=== PATIENT | male | born 1965 | race American Indian/Alaskan Native ===

== ENCOUNTER 2017-10-03 12:59 | Observation (INO) | payer BC, OTHER ==
[2017-10-03] MEDS ORDERED: Sodium Chloride 0.9% 1,000 ML IV ONE (14:36)
--- NOTE | 2017-10-03 14:51 | RAD ---
HISTORY: Diabetic COMPARISON: Chest x-ray performed 10/20/16 TECHNIQUE: Chest, one view. FINDINGS: LUNGS: No focal consolidation. Please note that chest x-ray has limited sensitivity for the detection of pulmonary masses. PLEURA: No significant pleural effusion identified. No definite pneumothorax . CARDIOVASCULAR: The cardiomediastinal silhouette appears within normal limits of size. OSSEOUS STRUCTURES: No acute osseous abnormality identified. VISUALIZED UPPER ABDOMEN: Unremarkable. OTHER FINDINGS: None. IMPRESSION: No focal consolidation, significant pleural effusion, or definite pneumothorax identified.
--- NOTE | 2017-10-03 15:00 | C.PDOC ---
History Of Present Illness 52 y/o male, with history of Type 2 diabetes, sent to the ER by PMD, , for high sugar levels. Patient reports that his mouth feels dry and he is urinating frequently. He states that his blood sugar level was 372 in the morning.that he controls his diabetes through exercise and diet. He reports that he has been exercising as frequently in the past month.He states that he takes Metformin 500 mg 2x a day. He denies nausea, vomiting, and diarrhea. Time Seen by Provider: 10/03/17 14:15 Chief Complaint (Nursing): High Blood Sugar History Per: Patient History/Exam Limitations: no limitations Onset/Duration Of Symptoms: Hrs Current Symptoms Are (Timing): Still Present Severity: Moderate Past Medical History Reviewed: Historical Data, Nursing Documentation, Vital Signs Vital Signs: Last Vital Signs Temp 98.6 F 10/03/17 13:22 Pulse 75 10/03/17 13:22 Resp 18 10/03/17 13:22 BP 119/74 10/03/17 13:22 Pulse Ox 100 10/03/17 15:04 - Medical History PMH: Diabetes, Hyperlipidemia Surgical History: No Surg Hx Family History: States: Other Other Family History: Cancer - Social History Hx Tobacco Use: No Hx Alcohol Use: Yes Hx Substance Use: No - Immunization History Hx Tetanus Toxoid Vaccination: No Hx Influenza Vaccination: No Hx Pneumococcal Vaccination: No Review Of Systems Except As Marked, All Systems Reviewed And Found Negative. Constitutional: Negative for: Fever, Chills ENT: Positive for: Other (dry mouth) Gastrointestinal: Negative for: Nausea, Vomiting, Diarrhea Genitourinary: Positive for: Frequency. Negative for: Dysuria Physical Exam - Physical Exam Appears: Non-toxic, No Acute Distress Skin: Normal Color, Warm Head: Atraumatic, Normacephalic Eye(s): bilateral: Normal Inspection, PERRL Nose: Normal Oral Mucosa: Moist Neck: Supple Chest: Symmetrical Cardiovascular: Rhythm Regular Respiratory: Normal Breath Sounds, No Accessory Muscle Use, No Rales, No Rhonchi , No Wheezing Gastrointestinal/Abdominal: Normal Exam, Soft, No Tenderness Extremity: Normal ROM, No Tenderness, No Swelling Neurological/Psych: Oriented x3, Normal Speech, Normal Cognition, Normal Motor, Normal Sensation ED Course And Treatment - Laboratory Results Result Diagrams: 10/03/17 15:16 10/03/17 15:16 O2 Sat by Pulse Oximetry: 100 (RA) Pulse Ox Interpretation: Normal Medical Decision Making Medical Decision Making: Plan: --CXR --ECG --Labs --Urinalysis Spoke with Dr. Sotomayor, patient with multiple visits to MD for elevated blood sugar. Patient persistently hyperglycemic. Not tolerating diabetic meds well. Request patient be hospitalized , hydrated and stabilized. Disposition Discussed With Dr.: Danny Hurley Counseled Patient/Family Regarding: Studies Performed, Diagnosis - Disposition Disposition: HOME/ ROUTINE Disposition Time: 15:47 Condition: GUARDED Forms: [employer] (Czech) - POA Present On Arrival: None - Clinical Impression Clinical Impression: Hyperglycemia, Diabetic complication - Scribe Statement The provider has reviewed the documentation as recorded by the Scribe Arielle Singh Provider Attestation: All medical record entries made by the Scribe were at my direction and personally dictated by me. I have reviewed the chart and agree that the record accurately reflects my personal performance of the history, physical exam, medical decision making, and the department course for this patient. I have also personally directed, reviewed, and agree with the discharge instructions and disposition. Decision To Admit - Pt Status Changed To: Hospital Disposition Of: Observation - InPatient: Physician Admission Certification: I certify that this patient requires 2 or more midnights of care for the following reason:: peristant hyperglycemia - . Bed Request Type: Regular Patient Diagnosis: Diabetic complication
[2017-10-03 15:23] LABS: EOS # 0.1 K/uL (0.0-0.7); EOS % 1.2 % (0.0-4.0); HEMOGLOBIN 13.3 g/dL (12.0-18.0); LYMPH # 2.2 K/uL (1.0-4.3); LYMPH % 47.1 % (20.0-40.0); MEAN CELL VOLUME 85.5 fL (80.0-94.0); MEAN CORPUSCULAR HEMOGLOBIN 28.5 pg (27.0-31.0); MEAN CORPUSCULAR HGB CONC 33.4 g/dL (33.0-37.0); MEAN PLATELET VOLUME 9.9 fL (7.2-11.7); MONO # 0.3 K/uL (0.0-0.8); MONO % 7.1 % (0.0-10.0); NEUT # 2.1 K/uL (1.8-7.0); NEUT % 43.6 % (50.0-75.0); NRBC % 0.2 % (0.0-2.0); RBC 4.68 Mil/uL (4.40-5.90); RED CELL DISTRIBUTION WIDTH 12.5 % (11.5-14.5); WHITE BLOOD COUNT 4.7 K/uL (4.8-10.8)
[2017-10-03] MEDS ORDERED: Sodium Chloride 0.9% 1,000 ML ONE (15:35)
[2017-10-03 15:37] LABS: ALB/GLOB RATIO 1.1 (1.0-2.1); ALBUMIN 4.3 g/dL (3.5-5.0); ALT/SGPT 77 U/L (21-72); AST/SGOT 31 U/L (17-59); BLOOD UREA NITROGEN 16 mg/dL (9-20); CALCIUM 8.8 mg/dl (8.6-10.4); GFR AFRICAN-AMERICAN > 60; GFR NON-AFRICAN AMERICAN > 60; LIPASE 89 U/L (23-300)
[2017-10-03 15:40] LABS: VENOUS BLOOD GAS BASE EXCESS -8.6 mmol/L (0.0-2.0); VENOUS BLOOD GAS PCO2 33 mmHg (40-60); VENOUS BLOOD GAS PO2 26 mm/Hg (30-55); VENOUS BLOOD PH 7.31 (7.32-7.43)
[2017-10-03 15:44] LABS: URINE BILIRUBIN NEGATIVE (NEGATIVE); URINE BLOOD 1+ (NEGATIVE); URINE CLARITY Clear (Clear); URINE COLOR Yellow (YELLOW); URINE GLUCOSE (UA) 3+ mg/dL (Normal); URINE LEUKOCYTE ESTERASE NEG Leu/uL (Negative); URINE NITRATE NEGATIVE (NEGATIVE); URINE PROTEIN NEGATIVE (NEGATIVE)
[2017-10-03] MEDS ORDERED: (Novolog) Insulin Aspart, Recombinant 100 u/ml 10 ml vial SC SCH (17:45)
--- NOTE | 2017-10-03 17:55 | CP.PCM.HP ---
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 Hurley. The patient states that for the past week he has been experiencing dry mouth and urinary frequency. The patient recently began a regimen of Metformin approximately a week and a half ago due to his inability to control his blood sugar any longer with diet and exercise. The patient reports his blood sugar spiking as high as 466 last week. The patient reports his mother in February 2017 and reports having difficulty maintaining the diet and exercise regimen leading up to her . The patient denies any chest pain, shortness of breath, nausea, vomiting, fevers, chills, syncopal episodes, dizziness, abdominal pain, diarrhea , sore throat, or any other complaints. PMD: Dr. Hurley PMHx: Type 2 Diabetes, Dyslipidemia Medications: Metformin 500mg BID, Lipitor Daily Allergies: Denies Past surgical history: Denies Family history: Mom: Diabetes(), Dad: Diabetes () Social history: Social drinker, Denies tobacco use, Occasional marijuana smoker. Denies any illicit drug use. Present on Admission - Present on Admission Any Indicators Present on Admission: Yes History of Uncontrolled Diabetes: Yes Review of Systems - Constitutional Constitutional: Excessive Sweating, Weight Loss. absent: Chills, Fever, Frequent Falls, Headache, Snoring, Weakness - EENT Eyes: Blurred Vision. absent: Discharge, Dry Eye, Itchy Eyes, Loss of Peripheral Vision, Requires Corrective Lenses, Sees Flashes, Other Visual Disturbances, Loss of Vision Ears: absent: Ear Discharge, Dizziness Nose/Mouth/Throat: absent: Nasal Congestion, Nose Pain, Bleeding Gums, Throat Swelling, Tongue Swelling, Neck Pain - Cardiovascular Cardiovascular: absent: Chest Pain, Irregular Heart Rhythm, Leg Edema, Orthopnea , Palpitations, Paroxysmal Nocturnal Dyspnea, Pedal Edema - Respiratory Respiratory: Cough. absent: Hemoptysis, Pain on Inspiration, Change in Mucous Color - Gastrointestinal Gastrointestinal: absent: Abdominal Pain, Bloating, Diarrhea, Dyspepsia, Loose Stools, Nausea, Vomiting - Genitourinary Genitourinary: Urinary Frequency. absent: Change in Urinary Stream, Difficulty Urinating, Nocturia, Urinary Urgency - Integumentary Integumentary: absent: Bleeding Lesions, New Lesions, Swelling - Neurological Neurological: absent: Abnormal Hearing, Dizziness, Numbness, Tremor, Vertigo, Weakness - Psychiatric Psychiatric: Change in Appetite. absent: Anxiety, Depression, Hopelessness, Panic Attacks, Tactile Hallucinations - Endocrine Endocrine: Polyuria. absent: Deepening of Voice, Polydipsia, Polyphagia Past Patient History - Past Social History Smoking Status: Never Smoked - ENDOCRINE/METABOLIC Hx Diabetes Mellitus Type 2: Yes - PSYCHIATRIC Hx Substance Use: No - SURGICAL HISTORY Other/Comment: tumor removal under left arm - ANESTHESIA Hx Anesthesia: Yes Hx Anesthesia Reactions: No Hx Malignant Hyperthermia: No Meds Allergies/Adverse Reactions: Allergies Allergy/AdvReac Type Severity Reaction Status Date / Time No Known Allergies Allergy Verified 02/28/15 11:34 Physical Exam - Head Exam Head Exam: ATRAUMATIC, NORMAL INSPECTION, NORMOCEPHALIC - Eye Exam Eye Exam: EOMI, Normal appearance, PERRL. absent: Periorbital tenderness Pupil Exam: NORMAL ACCOMODATION, PERRL. absent: Irregular, Unequal - ENT Exam ENT Exam: Mucous Membranes Moist, Normal Exam, Normal Oropharynx - Neck Exam Neck exam: Positive for: Normal Inspection. Negative for: Lymphadenopathy, Thyromegaly - Respiratory Exam Respiratory Exam: Clear to Auscultation Bilateral, NORMAL BREATHING PATTERN. absent: Prolonged Expiratory Phase, Wheezes, Respiratory Distress - Cardiovascular Exam Cardiovascular Exam: REGULAR RHYTHM, RRR, +S1, +S2. absent: Gallop, Rubs - GI/Abdominal Exam GI & Abdominal Exam: Normal Bowel Sounds, Soft. absent: Hypoactive Bowel Sounds , Organomegaly, Tenderness - Extremities Exam Extremities exam: Positive for: normal inspection. Negative for: full ROM, joint swelling, pedal edema, tenderness - Back Exam Back exam: NORMAL INSPECTION. absent: CVA tenderness (L), CVA tenderness (R), paraspinal tenderness - Neurological Exam Neurological exam: Alert, CN II-XII Intact, Normal Gait, Oriented x3 - Psychiatric Exam Psychiatric exam: Normal Affect, Normal Mood - Skin Skin Exam: Dry, Intact, Warm Results - Vital Signs Recent Vital Signs: Last Vital Signs Temp 98.6 F 01/16/18 13:22 Pulse 75 10/03/17 13:22 Resp 18 10/03/17 13:22 BP 119/74 10/03/17 13:22 Pulse Ox 100 10/03/17 15:50 - Labs Result Diagrams: 10/03/17 15:16 10/03/17 15:16 Labs: Laboratory Results - last 24 hr 10/03/17 10/03/17 10/03/17 15:16 15:16 15:26 WBC 4.7 L RBC 4.68 Hgb 13.3 Hct 40.0 MCV 85.5 MCH 28.5 MCHC 33.4 RDW 12.5 Plt Count 220 MPV 9.9 Neut % (Auto) 43.6 L Lymph % (Auto) 47.1 H [place] % (Auto) 7.1 Eos % (Auto) 1.2 Baso % (Auto) 1.0 Neut # 2.1 Lymph # 2.2 [place] # 0.3 Eos # 0.1 Baso # 0.0 Puncture Site pO2 Haile Test VBG pH VBG pCO2 VBG HCO3 VBG O2 Sat (Calc) VBG Base Excess Sodium 132 Potassium 4.1 Chloride 99 Carbon Dioxide 25 Anion Gap 12 BUN 16 Creatinine 1.0 Est GFR ( Amer) > 60 Est GFR (Non-Af Amer) > 60 Random Glucose 333 H Calcium 8.8 Total Bilirubin 0.8 AST 31 ALT 77 H Alkaline Phosphatase 82 Total Protein 8.2 Albumin 4.3 Globulin 3.9 Albumin/Globulin Ratio 1.1 Lipase 89 Urine Color Yellow Urine Clarity Clear Urine pH 6.0 Ur Specific [place] 1.037 H Urine Protein Negative Urine Glucose (UA) 3+ H Urine Ketones Trace Urine Blood 1+ H Urine Nitrate Negative Urine Bilirubin Negative Urine Urobilinogen 2.0 Ur Leukocyte Esterase Neg Urine WBC (Auto) 1 Urine RBC (Auto) 5 H Serum Ketones Negative 10/03/17 15:35 WBC RBC Hgb Hct MCV MCH MCHC RDW Plt Count MPV Neut % (Auto) Lymph % (Auto) [place] % (Auto) Eos % (Auto) Baso % (Auto) Neut # Lymph # [place] # Eos # Baso # Puncture Site Venous pO2 26 L Haile Test Na VBG pH 7.31 L VBG pCO2 33 L VBG HCO3 16.7 VBG O2 Sat (Calc) 53.6 VBG Base Excess -8.6 L Sodium Potassium Chloride Carbon Dioxide Anion Gap BUN Creatinine Est GFR ( Amer) Est GFR (Non-Af Amer) Random Glucose Calcium Total Bilirubin AST ALT Alkaline Phosphatase Total Protein Albumin Globulin Albumin/Globulin Ratio Lipase Urine Color Urine Clarity Urine pH Ur Specific [place] Urine Protein Urine Glucose (UA) Urine Ketones Urine Blood Urine Nitrate Urine Bilirubin Urine Urobilinogen Ur Leukocyte Esterase Urine WBC (Auto) Urine RBC (Auto) Serum Ketones Assessment & Plan - Assessment and Plan (Free Text) Assessment: 52 year old male with past medical history of dyslipidemia and Type 2 diabetes being admitted for uncontrolled diabetes. Plan: Uncontrolled Diabetes -Hemoglobin A1C in the A.M. -Lipid panel in the A.M. -Will hold Metformin at this time. -Start Novolog sliding scale (low) -Accuchecks QACHS -Carbohydrate consistent diet -NS @100cc/hr - Dietitian referral -Endocrinology consult( Dr.Jenny Hassan) -Patient was previously controlled for five years with diet and exercise; Started Metformin 1.5 weeks ago. -CT abdomen/pelvis with PO/IV contrast: new onset uncontrolled diabetic. Will f/ u with results. Dyslipidemia -Lipid panel. Will f/u with results. -Restart home medications (Lipitor--> Crestor) Cough -CXR done in the E.D. was negative for active disease -Blood culture. Will f/u with results. -Urine culture. Will f/u with results. -Legionella urine antigen, Mycoplasma pneumoniae IgM, Strep pneumoniae urine Ag , and Influenza. Will f/u with results. Leukopenia -HIV 1/2 Screen -Mild. WBC 4.7. Prophylaxis -Pepcid 20 mg POD BID -Ambulatory. SCD's Bilaterally at night. <Mine Barrera V - Last Filed: 10/04/17 07:38> Results - Vital Signs Recent Vital Signs: Last Vital Signs Temp 98 F 10/03/17 23:50 Pulse 78 10/03/17 23:50 Resp 19 10/03/17 23:50 BP 108/64 10/03/17 23:50 Pulse Ox 99 10/04/17 03:30 - Labs Result Diagrams: 10/03/17 15:16 10/03/17 15:16 Labs: Laboratory Results - last 24 hr 10/03/17 10/03/17 10/03/17 15:16 15:16 15:26 WBC 4.7 L RBC 4.68 Hgb 13.3 Hct 40.0 MCV 85.5 MCH 28.5 MCHC 33.4 RDW 12.5 Plt Count 220 MPV 9.9 Neut % (Auto) 43.6 L Lymph % (Auto) 47.1 H [place] % (Auto) 7.1 Eos % (Auto) 1.2 Baso % (Auto) 1.0 Neut # 2.1 Lymph # 2.2 [place] # 0.3 Eos # 0.1 Baso # 0.0 Puncture Site pO2 Haile Test VBG pH VBG pCO2 VBG HCO3 VBG O2 Sat (Calc) VBG Base Excess Sodium 132 Potassium 4.1 Chloride 99 Carbon Dioxide 25 Anion Gap 12 BUN 16 Creatinine 1.0 Est GFR ( Amer) > 60 Est GFR (Non-Af Amer) > 60 POC Glucose (mg/dL) Random Glucose 333 H Hemoglobin A1c Calcium 8.8 Total Bilirubin 0.8 AST 31 ALT 77 H Alkaline Phosphatase 82 Total Protein 8.2 Albumin 4.3 Globulin 3.9 Albumin/Globulin Ratio 1.1 Triglycerides Cholesterol LDL Cholesterol Direct HDL Cholesterol Lipase 89 Urine Color Yellow Urine Clarity Clear Urine pH 6.0 Ur Specific [place] 1.037 H Urine Protein Negative Urine Glucose (UA) 3+ H Urine Ketones Trace Urine Blood 1+ H Urine Nitrate Negative Urine Bilirubin Negative Urine Urobilinogen 2.0 Ur Leukocyte Esterase Neg Urine WBC (Auto) 1 Urine RBC (Auto) 5 H Serum Ketones Negative HIV 1&2 Antibody Screen Ur L.pneumophila Ag Mycoplasma pneumon IgM 10/03/17 10/03/17 10/03/17 15:35 17:58 18:53 WBC RBC Hgb Hct MCV MCH MCHC RDW Plt Count MPV Neut % (Auto) Lymph % (Auto) [place] % (Auto) Eos % (Auto) Baso % (Auto) Neut # Lymph # [place] # Eos # Baso # Puncture Site Venous pO2 26 L Haile Test Na VBG pH 7.31 L VBG pCO2 33 L VBG HCO3 16.7 VBG O2 Sat (Calc) 53.6 VBG Base Excess -8.6 L Sodium Potassium Chloride Carbon Dioxide Anion Gap BUN Creatinine Est GFR ( Amer) Est GFR (Non-Af Amer) POC Glucose (mg/dL) 216 H Random Glucose Hemoglobin A1c Calcium Total Bilirubin AST ALT Alkaline Phosphatase Total Protein Albumin Globulin Albumin/Globulin Ratio Triglycerides Cholesterol LDL Cholesterol Direct HDL Cholesterol Lipase Urine Color Urine Clarity Urine pH Ur Specific [place] Urine Protein Urine Glucose (UA) Urine Ketones Urine Blood Urine Nitrate Urine Bilirubin Urine Urobilinogen Ur Leukocyte Esterase Urine WBC (Auto) Urine RBC (Auto) Serum Ketones HIV 1&2 Antibody Screen Negative Ur L.pneumophila Ag Mycoplasma pneumon IgM 10/03/17 10/03/17 10/03/17 19:03 19:03 21:48 WBC RBC Hgb Hct MCV MCH MCHC RDW Plt Count MPV Neut % (Auto) Lymph % (Auto) [place] % (Auto) Eos % (Auto) Baso % (Auto) Neut # Lymph # [place] # Eos # Baso # Puncture Site pO2 Haile Test VBG pH VBG pCO2 VBG HCO3 VBG O2 Sat (Calc) VBG Base Excess Sodium Potassium Chloride Carbon Dioxide Anion Gap BUN Creatinine Est GFR ( Amer) Est GFR (Non-Af Amer) POC Glucose (mg/dL) 254 H Random Glucose Hemoglobin A1c 12.5 H Calcium Total Bilirubin AST ALT Alkaline Phosphatase Total Protein Albumin Globulin Albumin/Globulin Ratio Triglycerides 121 Cholesterol 165 LDL Cholesterol Direct 102 HDL Cholesterol 39 Lipase Urine Color Urine Clarity Urine pH Ur Specific [place] Urine Protein Urine Glucose (UA) Urine Ketones Urine Blood Urine Nitrate Urine Bilirubin Urine Urobilinogen Ur Leukocyte Esterase Urine WBC (Auto) Urine RBC (Auto) Serum Ketones HIV 1&2 Antibody Screen Ur L.pneumophila Ag Mycoplasma pneumon IgM 10/03/17 10/03/17 10/04/17 Unknown Unknown 07:07 WBC RBC Hgb Hct MCV MCH MCHC RDW Plt Count MPV Neut % (Auto) Lymph % (Auto) [place] % (Auto) Eos % (Auto) Baso % (Auto) Neut # Lymph # [place] # Eos # Baso # Puncture Site pO2 Haile Test VBG pH VBG pCO2 VBG HCO3 VBG O2 Sat (Calc) VBG Base Excess Sodium Potassium Chloride Carbon Dioxide Anion Gap BUN Creatinine Est GFR ( Amer) Est GFR (Non-Af Amer) POC Glucose (mg/dL) 341 H Random Glucose Hemoglobin A1c Calcium Total Bilirubin AST ALT Alkaline Phosphatase Total Protein Albumin Globulin Albumin/Globulin Ratio Triglycerides Cholesterol LDL Cholesterol Direct HDL Cholesterol Lipase Urine Color Urine Clarity Urine pH Ur Specific [place] Urine Protein Urine Glucose (UA) Urine Ketones Urine Blood Urine Nitrate Urine Bilirubin Urine Urobilinogen Ur Leukocyte Esterase Urine WBC (Auto) Urine RBC (Auto) Serum Ketones HIV 1&2 Antibody Screen Ur L.pneumophila Ag Negative Mycoplasma pneumon IgM Negative Attending/Attestation - Attestation I have personally seen and examined this patient.: Yes I have fully participated in the care of the patient.: Yes I have reviewed all pertinent clinical information: Yes Notes (Text): This is a late computer entry for 10/03/2017. Patient seen, examined, and case discussed with emergency medical technician/driver. Patient seen in [facility] emergency room bed 14 on 10/03/2017. Patient reports history of controlled diabetes not requiring any by mouth anti- hyperglycemics for many years with a family history of diabetes prominently his mother who also from sequela of breast cancer. Patient reports he was recently started by his PMD metformin about a week and a half ago however his sugars remain above 250 to upwards 300s. Patient reports he has been more health conscious and has only been really eating salads these past 2 weeks including grilled chicken and he is stretching his fruit and he has not been to the gym in the new year. Patient reports unintentional weight loss of about 9 pounds in these past 2 weeks. Patient is also on a statin for his history of cholesterol problems. Upon review of labs, patient does not have an elevated anion gap and nor does he have ketones to be suggestive of DKA. Patient does have sugars above 300. Patient has not recently been on any steroids and reports he is getting over cold. Discussed admitting orders with emergency medical technician/driver. Assessment plan 1.Uncontrolled Diabetes -Hemoglobin A1C in the A.M. Patient's A1c drawn early in the emergency room which shows an A1c of 12.5 we will need to follow-up with patient's primary care doctor to see how bennett over change his what sounds like controlled diabetes to currently. -Lipid panel in the A.M. -Will hold Metformin at this time. -Start Novolog sliding scale (low) -Accuchecks QACHS -Start Lantus 5 units at night -Carbohydrate consistent diet -NS @100cc/hr - Dietitian referral -Endocrinology consult( Dr.Jenny Hassan)-Dr. Hassan is not available -Patient was previously controlled for five years with diet and exercise; Started Metformin 1.5 weeks ago. -CT abdomen/pelvis with PO/IV contrast: new onset uncontrolled diabetic. Will f/ u with results. 2. Dyslipidemia -Lipid panel. Will f/u with results. -Restart home medications (Lipitor--> Crestor) 3. Cough -CXR done in the E.D. was negative for active disease -Blood culture. Will f/u with results. -Urine culture. Will f/u with results. -Legionella urine antigen, Mycoplasma pneumoniae IgM, Strep pneumoniae urine Ag , and Influenza. Will f/u with results. 4. Leukopenia -HIV 1/2 Screen -Mild. WBC 4.7. neutrophil # 2.1 5. Prophylaxis -Pepcid 20 mg POD BID -Ambulatory. SCD's Bilaterally at night. Patient does not want influenza vaccination I have explained to him the preventative nature of influenza vaccination, which he refuses it.
[2017-10-03] MEDS ORDERED: Iohexol 300 100 ML IJ ONE (18:01)
[2017-10-03] MEDS: Sodium Chloride 0.9% 1,000 ML IV SCH (18:30)
[2017-10-03] MEDS ORDERED: Iohexol 240 (50 ml) ONE (18:43)
[2017-10-03] MEDS: (Novolog) Insulin Aspart, Recombinant 100 u/ml 10 ml vial SC SCH ×2 (18:48→21:57)
[2017-10-03 19:13] LABS: HDL CHOLESTEROL 39 mg/dL (30-70)
[2017-10-03 19:23] LABS: LDL CHOLESTEROL 102 mg/dL (0-129)
--- NOTE | 2017-10-03 20:30 | CT ---
EXAM: CT Abdomen and Pelvis With Intravenous Contrast EXAM DATE/TIME: Exam ordered 10/03/2017 5:39 PM CLINICAL HISTORY: 52 years old, male; Pain; Abdominal pain; Other: Weight loss; Additional info: New onset uncontrolled diabetes TECHNIQUE: Axial computed tomography images of the abdomen and pelvis with intravenous contrast. All CT scans at this facility use one or more dose reduction techniques, viz.: automated exposure control; ma/kV adjustment per patient size (including targeted exams where dose is matched to indication; i.e. head); or iterative reconstruction technique. Coronal and sagittal reformatted images were created and reviewed. CONTRAST: 100 mL of omniupaque 300 administered intravenously. COMPARISON: No relevant prior studies available. FINDINGS: Lower thorax: No acute findings. ABDOMEN: Liver: Unremarkable. No mass. Gallbladder and bile ducts: Unremarkable. No calcified stones. No ductal dilation. Pancreas: Unremarkable. No mass. No ductal dilation. Spleen: Unremarkable. No splenomegaly. Adrenals: Unremarkable. No mass. Kidneys and ureters: There are 6 low density lesions noted in the right kidney. 2 are less than 5 mm and are characterized fully. The other 3 are simple cysts. 3 low density lesions are seen in the left kidney. One is less than 5 mm and not characterized fully. The other 2 are simple cysts. Stomach and bowel: Unremarkable. No obstruction. No mucosal thickening. Appendix: No findings to suggest acute appendicitis. PELVIS: Bladder: Unremarkable. No mass. Reproductive: No prostate measures 2.8 x 4.6 x3 cm ABDOMEN and PELVIS: Intraperitoneal space: Unremarkable. No free air. No significant fluid collection. Bones/joints: No acute fracture. No dislocation. Soft tissues: Unremarkable. Vasculature: Unremarkable. No abdominal aortic aneurysm. Lymph nodes: Unremarkable. No enlarged lymph nodes. IMPRESSION: 1. No acute findings. No abnormalities related to the pancreas. 2. Bilateral renal cysts. Both kidneys have low density lesions less than 5 mm that are too small to characterize fully
[2017-10-03] MEDS ORDERED: (Lantus) Insulin Glargine, Recombinant SC SCH (22:45)
[2017-10-04 08:19] LABS: BASO % 0.8 % (0.0-2.0); EOS # 0.1 K/uL (0.0-0.7); EOS % 1.7 % (0.0-4.0); LYMPH # 2.2 K/uL (1.0-4.3); LYMPH % 48.3 % (20.0-40.0); MEAN CELL VOLUME 85.4 fL (80.0-94.0); MEAN PLATELET VOLUME 9.8 fL (7.2-11.7); MONO # 0.4 K/uL (0.0-0.8); MONO % 8.4 % (0.0-10.0); NEUT # 1.9 K/uL (1.8-7.0); NEUT % 40.8 % (50.0-75.0); NRBC % 0.1 % (0.0-2.0); RBC 4.12 Mil/uL (4.40-5.90); RED CELL DISTRIBUTION WIDTH 12.6 % (11.5-14.5); WHITE BLOOD COUNT 4.5 K/uL (4.8-10.8)
[2017-10-04 08:31] LABS: ALB/GLOB RATIO 1.2 (1.0-2.1); ALBUMIN 3.6 g/dL (3.5-5.0); ALT/SGPT 64 U/L (21-72); AST/SGOT 19 U/L (17-59); BLOOD UREA NITROGEN 14 mg/dL (9-20); CALCIUM 8.2 mg/dl (8.6-10.4); GFR AFRICAN-AMERICAN > 60; GFR NON-AFRICAN AMERICAN > 60; HDL CHOLESTEROL 27 mg/dL (30-70); MAGNESIUM 1.6 mg/dL (1.6-2.3)
[2017-10-04] MEDS: (Novolog) Insulin Aspart, Recombinant 100 u/ml 10 ml vial SC SCH ×6 (08:41→17:10)
[2017-10-04 08:45] LABS: LDL CHOLESTEROL 90 mg/dL (0-129)
[2017-10-04] MEDS ORDERED: Influenza Vaccine 60 mcg/0.5 mL SYR (4YR UP) IM ONE (10:00)
[2017-10-04] MEDS ORDERED: Pneumococcal 23-Valent Vaccine IM ONE (10:00)
[2017-10-04] MEDS: Sodium Chloride 0.9% 1,000 ML IV SCH ×2 (14:37→14:38)
--- NOTE | 2017-10-04 18:33 | CP.PCM.PN ---
Subjective - Date & Time of Evaluation Date of Evaluation: 10/04/17 Time of Evaluation: 14:35 - Subjective Subjective: Medical Attending Note Patient seen and examined. Patient denies headache, denies chest pain, denies palpitations. denies shortness of breathe, denies nausea, denies vomitting, denies muscle aches and pain, denies abdominal pain, denies dysuria, denies frequency. I spoke with him at length he will need insulin given his [id number] is over 9.5; it is 12.5 and he will need insulin to help control his sugars. His uncontrolled sugars are leading him to feel down, muscle aches, and going to the bathroom more frequently. I spoke with his PMD, Dr Hurley, his a1c in the office was 13 and over the past couple of years he has been recommend for oral hypoglycemics but had refused when his a1c was in the 8s. Objective - Vital Signs/Intake and Output Vital Signs (last 24 hours): Temp Pulse Resp BP Pulse Ox 98.5 F 75 20 113/68 98 10/04/17 16:00 10/04/17 16:00 10/04/17 16:00 10/04/17 16:00 10/04/17 16:00 - Medications Medications: Current Medications Famotidine (Pepcid) 20 mg PO BID [facility] Last Admin: 10/04/17 18:18 Dose: Not Given Heparin Sodium (Porcine) (Heparin) 5,000 units SC Q12 [facility] Last Admin: 10/04/17 10:04 Dose: Not Given Sodium Chloride (Sodium Chloride 0.9%) 1,000 mls @ 100 mls/hr IV .Q10H [facility] Last Admin: 10/04/17 14:38 Dose: Not Given Insulin Aspart (Novolog) 8 unit SC AC [facility] Last Admin: 10/04/17 17:08 Dose: 8 unit Insulin Aspart (Novolog) 0 unit SC ACHS [facility] PRN Reason: Protocol Last Admin: 10/04/17 17:10 Dose: Not Given Insulin Glargine (Lantus) 20 unit SC HS [facility] Rosuvastatin Calcium (Crestor) 10 mg PO HS [facility] - Labs Labs: 10/04/17 08:03 10/04/17 08:03 - Constitutional Appears: Non-toxic, No Acute Distress - Head Exam Head Exam: NORMAL INSPECTION - Eye Exam Eye Exam: EOMI - ENT Exam ENT Exam: Mucous Membranes Moist - Respiratory Exam Respiratory Exam: Clear to Ausculation Bilateral, NORMAL BREATHING PATTERN. absent: Rales, Rhonchi, Wheezes - Cardiovascular Exam Cardiovascular Exam: REGULAR RHYTHM, +S1, +S2 - GI/Abdominal Exam GI & Abdominal Exam: Soft, Normal Bowel Sounds. absent: Distended, Firm, Guarding, Rigid, Tenderness, Mass, Rebound - Extremities Exam Extremities Exam: absent: Pedal Edema, Tenderness - Back Exam Back Exam: absent: CVA tenderness (L), CVA tenderness (R) - Neurological Exam Neurological Exam: Alert, Awake, Oriented x3 Neuro motor strength exam: Left Upper Extremity: 5, Right Upper Extremity: 5, Left Lower Extremity: 5, Right Lower Extremity: 5 - Psychiatric Exam Psychiatric exam: Normal Affect, Normal Mood - Skin Skin Exam: Dry, Normal Color, Warm Assessment and Plan (1) Uncontrolled diabetes mellitus Assessment & Plan: Endocrinology: Dr. Hassan on consult [id number]: 12.5 AccuchecksQAC and HS Start Lantus 20 units subqHS Novolog 8 units subac Novolog sc ACHS Crestor 10mg POqHS (lipital not available in house) Status: Chronic (2) Hyperlipidemia Assessment & Plan: Crestor 10mg POqHS T, Chol: 165, LDL: 102, HDL:39 Status: Chronic (3) Prophylactic measure Assessment & Plan: Patient is ordered for heparin dvt ppx and pepcid gi ppx refuses it. Patient was recommended for influenza and pneumonia vaccinations but has also refused it [facility] referral-->pending Will discontinue IV fluids. Status: Acute
[2017-10-04] MEDS ORDERED: Bisacodyl 5mg EC Tab PO ONE (19:44)
[2017-10-04] MEDS ORDERED: (Lantus) Insulin Glargine, Recombinant SC SCH (22:00)
--- NOTE | 2017-10-05 04:24 | CON ---
DATE: ENDOCRINOLOGY CONSULTATION LOCATION: Room 369. HISTORY OF PRESENT ILLNESS: This is a 52-year-old male with known history of type 2 diabetes, recently started on metformin of 500 mg b.i.d. and presenting here with persistent hyperglycemic accelerations despite the aforementioned and is now being referred for diabetic evaluation and management. PAST MEDICAL HISTORY: As mentioned above, history of type 2 diabetes, recently started on metformin of 500 mg b.i.d., and also has dyslipidemia, on Lipitor 20 mg daily. FAMILY HISTORY: Strongly positive for diabetes with both parents having had type 2 diabetes and hypertension. 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 REVIEW OF SYSTEMS: As mentioned above, admits to episodic bouts of dizziness and lightheadedness, worse on the day of admission with easy fatigability and tiredness, bifrontal headaches and visual blurring, again worse in the last two weeks or so prior to admission. No chest pains, palpitations or PNDs. His oral intake has been variable with occasional dyspepsia and admits to marked polyuria, nocturia, and polydipsia with about a 5-pound or so weight loss. PHYSICAL EXAMINATION: GENERAL: This is an average-built male, in no apparent distress. VITAL SIGNS: Blood pressure 140/80, pulse of 70 beats per minute, regular, temperature 98, respirations 20, height is 6 feet 2 inches, and weight is 192 pounds. HEENT: Head normocephalic. Eyes are anicteric with pink conjunctivae. Funduscopy not possible at this time. Ears, nose and throat otherwise normal. NECK: Supple. Thyroid gland is normal in size. No carotid bruits or cervical adenopathy. CARDIOPULMONARY: Adynamic precordium. S1 and S2 is rapid and regular. LUNGS: Clear to auscultation. ABDOMEN: Flat and soft with positive bowel sounds. EXTREMITIES: No peripheral edema. Pulses are +2 bilaterally. LABORATORY DATA: His chemistry shows a BUN of 14, sodium 132, potassium 3.9, chloride 102, CO2 of 24, glucose 355, and creatinine 0.9. His glucose levels have ranged from 320-341 mg/dL. His hemoglobin A1c was reported as 12.5%. ASSESSMENT: This is a 52-year-old male with uncontrolled and decompensated type-2 insulin-requiring diabetes, presented here with persistent hyperglycemic accelerations despite outpatient oral hypoglycemic drug therapy and associated spurious hyponatremia and dehydration as noted with prerenal azotemia. PLAN OF MANAGEMENT: Because of the persistent glucose toxicity and hyperglycemic accelerations, the patient would clearly benefit from the initiation of a more physiologic basal and bolus insulin drug combination as ordered. We will start him right away on the basal and bolus insulin combination with Lantus, given as 20 units subcu at bedtime daily to start tonight. We will also add NovoLog for the mealtime insulin requirement at a dose of 8 units t.i.d. before meals to start today. We will modify the coverage scale to obviate hypoglycemia and detailed orders have been given. We will titrate incrementally as indicated to optimize metabolic control. We will initiate diabetic education to include insulin self-administration at this time. Since he is newly diagnosed, would expect improved glycemic profile with the initiation of insulin therapy, and many at times in these patients recover metabolically with subtherapeutic hypoglycemia, and would be able to therefore switch him over to a basal insulin in combination with dual or triple oral hypoglycemic drug therapy during the day, preferably on the outpatient. This will also improve his clinical and metabolic symptoms as mentioned. We will initiate also nutritional counseling with healthier food choices as noted. We will also order a serum C-peptide to ascertain his endogenous pancreatic reserve at this time. We will follow and advice accordingly. We will also continue the vigorous IV hydration to replenish the lost fluids and electrolytes from the increased osmotic diuresis thereof. Teresa Hassan MD
[2017-10-05 07:46] LABS: BASO % 0.8 % (0.0-2.0); EOS # 0.1 K/uL (0.0-0.7); EOS % 2.1 % (0.0-4.0); LYMPH # 2.4 K/uL (1.0-4.3); LYMPH % 49.8 % (20.0-40.0); MEAN CELL VOLUME 84.9 fL (80.0-94.0); MEAN CORPUSCULAR HEMOGLOBIN 29.3 pg (27.0-31.0); MEAN CORPUSCULAR HGB CONC 34.6 g/dL (33.0-37.0); MEAN PLATELET VOLUME 9.6 fL (7.2-11.7); MONO # 0.4 K/uL (0.0-0.8); MONO % 8.9 % (0.0-10.0); NEUT # 1.9 K/uL (1.8-7.0); NEUT % 38.4 % (50.0-75.0); NRBC % 0.1 % (0.0-2.0); RBC 4.09 Mil/uL (4.40-5.90); RED CELL DISTRIBUTION WIDTH 12.7 % (11.5-14.5); WHITE BLOOD COUNT 4.8 K/uL (4.8-10.8)
[2017-10-05 08:10] VITALS: PULSE 68; RESP 20
[2017-10-05] MEDS: (Novolog) Insulin Aspart, Recombinant 100 u/ml 10 ml vial SC SCH ×6 (08:15→16:35)
[2017-10-05 08:29] LABS: ALB/GLOB RATIO 1.2 (1.0-2.1); ALBUMIN 3.6 g/dL (3.5-5.0); ALT/SGPT 64 U/L (21-72); AST/SGOT 24 U/L (17-59); BLOOD UREA NITROGEN 12 mg/dL (9-20); CALCIUM 8.4 mg/dl (8.6-10.4); GFR AFRICAN-AMERICAN > 60; GFR NON-AFRICAN AMERICAN > 60
[2017-10-05] MEDS ORDERED: Dextrose 50% SYRINGE Inj (50 ml) IV PRN (10:12)
[2017-10-05] MEDS ORDERED: Glucagon Recombinant 1 mg Inj IM PRN (10:12)
[2017-10-05] MEDS ORDERED: Sodium Chloride 0.9% 1,000 ML IV SCH (10:30)
--- NOTE | 2017-10-05 10:40 | CARD ---
APPROVED REPORT EKG Measurement Heart [id number] ND [id number] <Conclusion> Normal sinus rhythm Early repolarization Normal ECG
[2017-10-05 13:20] LABS: C-PEPTIDE 1.04 ng/mL (0.80-3.85)
[2017-10-05 17:02] VITALS: BP 112/72; TEMP 98.6; O2SAT 99
--- NOTE | 2017-10-05 17:07 | CP.PCM.DIS ---
<Ayden Robles - Last Filed: 10/05/17 18:09> Provider - Provider Date of Admission: 10/03/17 15:50 Attending physician: Mine Barrera DO Primary care physician: PMD: Dr. Hurley Consults: Endocrinology (Dr. Hassan) Time Spent in preparation of Discharge (in minutes): 45 Hospital Course - Lab Results Lab Results: Micro Results 10/03/17 18:45 Blood Blood Culture - Preliminary NO GROWTH AFTER 24 HOURS 10/03/17 18:15 Blood Blood Culture - Preliminary NO GROWTH AFTER 24 HOURS 10/03/17 19:32 Urine Urine Culture - Final No Growth (<1,000 CFU/ML) Most Recent Lab Values WBC 4.8 K/uL (4.8-10.8) 10/05/17 07:35 RBC 4.09 Mil/uL (4.40-5.90) L 10/05/17 07:35 Hgb 12.0 g/dL (12.0-18.0) 10/05/17 07:35 Hct 34.7 % (35.0-51.0) L 10/05/17 07:35 MCV 84.9 fL (80.0-94.0) 10/05/17 07:35 MCH 29.3 pg (27.0-31.0) 10/05/17 07:35 MCHC 34.6 g/dL (33.0-37.0) 10/05/17 07:35 RDW 12.7 % (11.5-14.5) 10/05/17 07:35 Plt Count 212 K/uL (130-400) 10/05/17 07:35 MPV 9.6 fL (7.2-11.7) 10/05/17 07:35 Neut % (Auto) 38.4 % (50.0-75.0) L 10/05/17 07:35 Lymph % (Auto) 49.8 % (20.0-40.0) H 10/05/17 07:35 Fallon % (Auto) 8.9 % (0.0-10.0) 10/05/17 07:35 Eos % (Auto) 2.1 % (0.0-4.0) 10/05/17 07:35 Baso % (Auto) 0.8 % (0.0-2.0) 10/05/17 07:35 Neut # 1.9 K/uL (1.8-7.0) 10/05/17 07:35 Lymph # 2.4 K/uL (1.0-4.3) 10/05/17 07:35 Fallon # 0.4 K/uL (0.0-0.8) 10/05/17 07:35 Eos # 0.1 K/uL (0.0-0.7) 10/05/17 07:35 Baso # 0.0 K/uL (0.0-0.2) 10/05/17 07:35 ESR 9 mm/hr (0-15) 10/04/17 08:03 Puncture Site Venous 10/03/17 15:35 pO2 26 mm/Hg (30-55) L 10/03/17 15:35 Haile Test Na 10/03/17 15:35 VBG pH 7.31 (7.32-7.43) L 10/03/17 15:35 VBG pCO2 33 mmHg (40-60) L 10/03/17 15:35 VBG HCO3 16.7 mmol/L 10/03/17 15:35 VBG O2 Sat (Calc) 53.6 % (40-65) 10/03/17 15:35 VBG Base Excess -8.6 mmol/L (0.0-2.0) L 10/03/17 15:35 Sodium 131 mmol/L (132-148) L 10/05/17 07:35 Potassium 3.7 mmol/L (3.6-5.2) 10/05/17 07:35 Chloride 102 mmol/L (98-107) 10/05/17 07:35 Carbon Dioxide 23 mmol/L (22-30) 10/05/17 07:35 Anion Gap 10 (10-20) 10/05/17 07:35 BUN 12 mg/dL (9-20) 10/05/17 07:35 Creatinine 0.9 mg/dL (0.8-1.5) 10/05/17 07:35 Est GFR ( Amer) > 60 10/05/17 07:35 Est GFR (Non-Af Amer) > 60 10/05/17 07:35 POC Glucose (mg/dL) 216 mg/dL (65-110) H 10/05/17 16:33 Random Glucose 275 mg/dL (75-110) H 10/05/17 07:35 Hemoglobin A1c 12.5 % (4.2-6.5) H 10/03/17 19:03 C-Peptide 1.04 ng/mL (0.80-3.85) 10/04/17 08:03 Calcium 8.4 mg/dl (8.6-10.4) L 10/05/17 07:35 Phosphorus 4.2 mg/dL (2.5-4.5) 10/04/17 08:03 Magnesium 1.6 mg/dL (1.6-2.3) 10/04/17 08:03 Total Bilirubin 0.6 mg/dL (0.2-1.3) 10/05/17 07:35 AST 24 U/L (17-59) 10/05/17 07:35 ALT 64 U/L (21-72) 10/05/17 07:35 Alkaline Phosphatase 61 U/L (38-126) 10/05/17 07:35 C-Reactive Prot, Quant 0.5 mg/L (<8.0) 10/04/17 08:03 C-React Prot High Sens 0.47 mg/L (1.00-3.00) L 10/04/17 08:03 Total Protein 6.6 g/dL (6.3-8.3) 10/05/17 07:35 Albumin 3.6 g/dL (3.5-5.0) 10/05/17 07:35 Globulin 3.0 gm/dL (2.2-3.9) 10/05/17 07:35 Albumin/Globulin Ratio 1.2 (1.0-2.1) 10/05/17 07:35 Triglycerides 111 mg/dL (0-149) 10/04/17 08:03 Cholesterol 142 mg/dL (0-199) 10/04/17 08:03 LDL Cholesterol Direct 90 mg/dL (0-129) 10/04/17 08:03 HDL Cholesterol 27 mg/dL (30-70) L 10/04/17 08:03 Lipase 89 U/L (23-300) 10/03/17 15:16 TSH 3rd Generation 1.62 mIU/L (0.46-4.68) 10/04/17 08:03 Urine Color Yellow (YELLOW) 10/03/17 15:26 Urine Clarity Clear (Clear) 10/03/17 15:26 Urine pH 6.0 (5.0-8.0) 10/03/17 15:26 Ur Specific [place] 1.037 (1.003-1.030) H 10/03/17 15:26 Urine Protein Negative mg/dL (NEGATIVE) 10/03/17 15:26 Urine Glucose (UA) 3+ mg/dL (Normal) H 10/03/17 15:26 Urine Ketones Trace mg/dL (NEGATIVE) 10/03/17 15:26 Urine Blood 1+ (NEGATIVE) H 10/03/17 15:26 Urine Nitrate Negative (NEGATIVE) 10/03/17 15:26 Urine Bilirubin Negative (NEGATIVE) 10/03/17 15:26 Urine Urobilinogen 2.0 mg/dL (0.2-1.0) 10/03/17 15:26 Ur Leukocyte Esterase Neg Juanjo/uL (Negative) 10/03/17 15:26 Urine WBC (Auto) 1 /hpf (0-5) 10/03/17 15:26 Urine RBC (Auto) 5 /hpf (0-3) H 10/03/17 15:26 Serum Ketones Negative (NEGATIVE) 10/03/17 15:16 HIV 1&2 Antibody Screen Negative (NEGATIVE) 10/03/17 18:53 Ur L.pneumophila Ag Negative (NEGATIVE) 10/03/17 Unknown Mycoplasma pneumon IgM Negative (NEGATIVE) 10/03/17 Unknown - Hospital Course Hospital Course: PMD: Dr. Hurley Consults: Endocrinology (Dr. Hassan) PRINCIPAL DISCHARGE DIAGNOSES: 1.Uncontrolled diabetes mellitus 2. Hyperlipidemia CC: High blood sugar HISTORY OF PRESENT ILLNESS: 52 year old man with a past medical history of Type 2 Diabetes and Dyslipidemia who comes into today after being advised from his PMD Dr. Hurley. The patient states that for the past week he has been experiencing dry mouth and urinary frequency. The patient recently began a regimen of Metformin approximately a week and a half ago due to his inability to control his blood sugar any longer with diet and exercise. The patient reports his blood sugar spiking as high as 466 last week. The patient reports his mother in February 2017 and reports having difficulty maintaining the diet and exercise regimen leading up to her . The patient denies any chest pain, shortness of breath, nausea, vomiting, fevers, chills, syncopal episodes, dizziness, abdominal pain, diarrhea , sore throat, or any other complaints. PMD: Dr. Hurley PMHx: Type 2 Diabetes, Dyslipidemia Medications: Metformin 500mg BID, Lipitor Daily Allergies: Denies Past surgical history: Denies Family history: Mom: Diabetes(), Dad: Diabetes () Social history: Social drinker, Denies tobacco use, Occasional marijuana smoker. Denies any illicit drug use SUMMARY OF COURSE: Kevin Dwyer is a 52-year-old male who was admitted to [facility] on 10/03/2017-10/05/2017 for persistent hyperglycemic accelerations despite outpatient oral hypoglycemic drug therapy. His medical history is notable for uncontrolled type-2 diabetes mellitus and hyperlipidemia. While at the hospital, he started on insulin and given fluids. Endocrinology was consulted. Imaging study results are stated below. Endocrinology, Dr. Hassan, said that he would benefit from basal and bolus insulin drug combination and IV hydration. Patient is to continue diabetic medications at home. He is also to follow up with his terrestrial ecologist for a foot exam. He is recommended to see an eye doctor as well. Imaging: Chest X-ray 10/03: No focal consolidation, significant pleural effusion, or definite pneumothorax identified. ECG 10/03: Normal sinus rhythm. Early repolarization. Normal ECG. CT Abdomen/Pelvis 10/03: No abnormalities related to the pancreas. Bilateral renal cysts. Both kidneys have low density lesions less than 5 mm that are too small to characterize fully. DISCHARGE MEDICATIONS: Atorvastatin [Lipitor]: 20 mg PO daily, #30 Insulin Glargine 30 unit SQ HS 30 days Insulin Lispro 8 unit SQ TID 30 days Discharge Exam - Head Exam Head Exam: NORMAL INSPECTION Discharge Plan - Discharge Medications Prescriptions: RX: Atorvastatin [Lipitor] 20 mg PO DAILY #30 tab Insulin Glargine,Hum.rec.anlog [Touelviao Solostar] 30 unit SQ HS 30 Days insuln.pen Insulin Lispro [Humalog Kwikpen U-200] 8 unit SQ TID 30 Days insuln.pen - Follow Up Plan Condition: STABLE Disposition: HOME/ ROUTINE Instructions: Atorvastatin (By mouth), Insulin Glargine (By injection), Insulin Lispro (By injection), Diabetic Hyperglycemia (DC) Additional Instructions: Patient is stable for discharge home. He is to follow up with his primary care and Dr. Mo smith one week of discharge for post hospital care. He is to check hi sugars 4 times a day and record his sugar numbers. He is to bring this log to his appointment with Dr. Hassan. Patient is to inject Insulin as instructed by Dr. Hassan. (Humalog 8 Units with breakfast, lunch, and dinner. Toujeo pen 30 Units at bedtime). All instructions explained to the patient and he agrees. Referrals: Teresa Hassan MD [Medical Doctor] - <Mine Barrera V - Last Filed: 10/06/17 01:17> Provider - Provider Date of Admission: 10/03/17 15:50 Attending physician: Mine Barrera DO Diagnosis - Discharge Diagnosis (1) Uncontrolled diabetes mellitus Status: Chronic (2) Hyperlipidemia Status: Chronic (3) Prophylactic measure Status: Acute Hospital Course - Lab Results Lab Results: Micro Results 10/03/17 18:45 Blood Blood Culture - Preliminary NO GROWTH AFTER 48 HOURS 10/03/17 18:15 Blood Blood Culture - Preliminary NO GROWTH AFTER 48 HOURS 10/03/17 19:32 Urine Urine Culture - Final No Growth (<1,000 CFU/ML) Most Recent Lab Values WBC 4.8 K/uL (4.8-10.8) 10/05/17 07:35 RBC 4.09 Mil/uL (4.40-5.90) L 10/05/17 07:35 Hgb 12.0 g/dL (12.0-18.0) 10/05/17 07:35 Hct 34.7 % (35.0-51.0) L 10/05/17 07:35 MCV 84.9 fL (80.0-94.0) 10/05/17 07:35 MCH 29.3 pg (27.0-31.0) 10/05/17 07:35 MCHC 34.6 g/dL (33.0-37.0) 10/05/17 07:35 RDW 12.7 % (11.5-14.5) 10/05/17 07:35 Plt Count 212 K/uL (130-400) 10/05/17 07:35 MPV 9.6 fL (7.2-11.7) 10/05/17 07:35 Neut % (Auto) 38.4 % (50.0-75.0) L 10/05/17 07:35 Lymph % (Auto) 49.8 % (20.0-40.0) H 10/05/17 07:35 Fallon % (Auto) 8.9 % (0.0-10.0) 10/05/17 07:35 Eos % (Auto) 2.1 % (0.0-4.0) 10/05/17 07:35 Baso % (Auto) 0.8 % (0.0-2.0) 10/05/17 07:35 Neut # 1.9 K/uL (1.8-7.0) 10/05/17 07:35 Lymph # 2.4 K/uL (1.0-4.3) 10/05/17 07:35 Fallon # 0.4 K/uL (0.0-0.8) 10/05/17 07:35 Eos # 0.1 K/uL (0.0-0.7) 10/05/17 07:35 Baso # 0.0 K/uL (0.0-0.2) 10/05/17 07:35 ESR 9 mm/hr (0-15) 10/04/17 08:03 Puncture Site Venous 10/03/17 15:35 pO2 26 mm/Hg (30-55) L 10/03/17 15:35 Haile Test Na 10/03/17 15:35 VBG pH 7.31 (7.32-7.43) L 10/03/17 15:35 VBG pCO2 33 mmHg (40-60) L 10/03/17 15:35 VBG HCO3 16.7 mmol/L 10/03/17 15:35 VBG O2 Sat (Calc) 53.6 % (40-65) 10/03/17 15:35 VBG Base Excess -8.6 mmol/L (0.0-2.0) L 10/03/17 15:35 Sodium 131 mmol/L (132-148) L 10/05/17 07:35 Potassium 3.7 mmol/L (3.6-5.2) 10/05/17 07:35 Chloride 102 mmol/L (98-107) 10/05/17 07:35 Carbon Dioxide 23 mmol/L (22-30) 10/05/17 07:35 Anion Gap 10 (10-20) 10/05/17 07:35 BUN 12 mg/dL (9-20) 10/05/17 07:35 Creatinine 0.9 mg/dL (0.8-1.5) 10/05/17 07:35 Est GFR ( Amer) > 60 10/05/17 07:35 Est GFR (Non-Af Amer) > 60 10/05/17 07:35 POC Glucose (mg/dL) 216 mg/dL (65-110) H 10/05/17 16:33 Random Glucose 275 mg/dL (75-110) H 10/05/17 07:35 Hemoglobin A1c 12.5 % (4.2-6.5) H 10/03/17 19:03 C-Peptide 1.04 ng/mL (0.80-3.85) 10/04/17 08:03 Calcium 8.4 mg/dl (8.6-10.4) L 10/05/17 07:35 Phosphorus 4.2 mg/dL (2.5-4.5) 10/04/17 08:03 Magnesium 1.6 mg/dL (1.6-2.3) 10/04/17 08:03 Total Bilirubin 0.6 mg/dL (0.2-1.3) 10/05/17 07:35 AST 24 U/L (17-59) 10/05/17 07:35 ALT 64 U/L (21-72) 10/05/17 07:35 Alkaline Phosphatase 61 U/L (38-126) 10/05/17 07:35 C-Reactive Prot, Quant 0.5 mg/L (<8.0) 10/04/17 08:03 C-React Prot High Sens 0.47 mg/L (1.00-3.00) L 10/04/17 08:03 Total Protein 6.6 g/dL (6.3-8.3) 10/05/17 07:35 Albumin 3.6 g/dL (3.5-5.0) 10/05/17 07:35 Globulin 3.0 gm/dL (2.2-3.9) 10/05/17 07:35 Albumin/Globulin Ratio 1.2 (1.0-2.1) 10/05/17 07:35 Triglycerides 111 mg/dL (0-149) 10/04/17 08:03 Cholesterol 142 mg/dL (0-199) 10/04/17 08:03 LDL Cholesterol Direct 90 mg/dL (0-129) 10/04/17 08:03 HDL Cholesterol 27 mg/dL (30-70) L 10/04/17 08:03 Lipase 89 U/L (23-300) 10/03/17 15:16 TSH 3rd Generation 1.62 mIU/L (0.46-4.68) 10/04/17 08:03 Urine Color Yellow (YELLOW) 10/03/17 15:26 Urine Clarity Clear (Clear) 10/03/17 15:26 Urine pH 6.0 (5.0-8.0) 10/03/17 15:26 Ur Specific [place] 1.037 (1.003-1.030) H 10/03/17 15:26 Urine Protein Negative mg/dL (NEGATIVE) 10/03/17 15:26 Urine Glucose (UA) 3+ mg/dL (Normal) H 10/03/17 15:26 Urine Ketones Trace mg/dL (NEGATIVE) 10/03/17 15:26 Urine Blood 1+ (NEGATIVE) H 10/03/17 15:26 Urine Nitrate Negative (NEGATIVE) 10/03/17 15:26 Urine Bilirubin Negative (NEGATIVE) 10/03/17 15:26 Urine Urobilinogen 2.0 mg/dL (0.2-1.0) 10/03/17 15:26 Ur Leukocyte Esterase Neg Juanjo/uL (Negative) 10/03/17 15:26 Urine WBC (Auto) 1 /hpf (0-5) 10/03/17 15:26 Urine RBC (Auto) 5 /hpf (0-3) H 10/03/17 15:26 Serum Ketones Negative (NEGATIVE) 10/03/17 15:16 HIV 1&2 Antibody Screen Negative (NEGATIVE) 10/03/17 18:53 Ur L.pneumophila Ag Negative (NEGATIVE) 10/03/17 Unknown Mycoplasma pneumon IgM Negative (NEGATIVE) 10/03/17 Unknown Attending/Attestation - Attestation I have personally seen and examined this patient.: Yes I have fully participated in the care of the patient.: Yes I have reviewed all pertinent clinical information, including history, physical exam and plan: Yes Notes (Text): this is late computer entry for 10/05/18. patient seen, examined, and case discussed with day-time resident. Patient reports he is feeling better. Better hydrated. Patient is aware he will need insulin to control his diabetes. Patient was seen by rooter operator, was taught how to use insulin, he works he is comfortable using insulin, and scripts for long acting and short acting insulins provided to the patient. patient provided information to follow-up with Dr. Hassan as outpatient following hospitalization to adjust his insulin regimen. Patient recommended to follow-up with PMD, Dr. Hurley on discharge.
--- NOTE | 2017-10-05 19:20 | PN ---
DATE: ENDOCRINOLOGY FOLLOWUP NOTE LOCATION: Room 353. SUBJECTIVE: This is a 52-year-old male with recent uncontrolled type 2 insulin requiring diabetes, now being followed closely for metabolic management. His glycemic levels are fluctuating but much improved at this time and the latest glucose levels have ranged from 141 to 151 mg/dL. However, the fasting glucose this morning was still over 300 at 303 mg/dL. The bedtime glucose was 84 to 221 mg/dL. His latest chemistry shows a BUN of 12, sodium 131, potassium 3.7, chloride 102, CO2 of 23, glucose 275, and creatinine 0.9. His serum C-peptide was actually 1.04, which is actually low normal for somebody who is severe type 2 diabetic because one should pass the threshold of 1 or below 1, then he becomes an insulin-dependent diabetic, so he is on the threshold of at this time being insulin requiring for now to optimize his metabolic control. His presenting or admitting A1c level was extremely elevated at 12.5% as noted. So, for now, we will recommend for eventual discharge today. A combination of a long-acting and rapid-acting insulin regimen as given. Prescriptions will be given for Toujeo given as 30 units subcu at bedtime daily with Humalog Pens given as 8 units subcu t.i.d. before meals as given. We will titrate incrementally as indicated to optimize metabolic control. We will follow and advise accordingly. We have also advised the patient regarding hypoglycemic episodes and the management thereof and also the dose titration to be undertaken and we will actually follow the patient for outpatient diabetic management. Teresa Hassan MD
[2017-10-05] MEDS ORDERED: (Lantus) Insulin Glargine, Recombinant SC SCH ×2 (22:00)
== END 2017-10-05 17:24 | disposition home or self-care (01) ==
LOC: C.ER 12:59 → C.9E 15:50 → C.3T 22:01
PROVIDERS: ADMIT Hospitalist; ATTEND Hospitalist
DX: E11.65 Type 2 diabetes mellitus with hyperglycemia (principal); E78.5 Hyperlipidemia, unspecified; E86.0 Dehydration; F12.90 Cannabis use, unspecified, uncomplicated; J11.1 Influenza due to unidentified influenza virus with other respiratory manifestations; Z79.4 Long term (current) use of insulin; E87.1 Hypo-osmolality and hyponatremia
CPT/HCPCS: 36415; 71045; 74177; 80053; 80061; 81001; 82009; 82803; 82948; 83036; 83690; 83735; 84100; 84443; 84681; 85025; 85651; 86140; 86703; 86710; 86738; 87040; 87086; 87449; 93005; 96360; 99285; G0378; J1644; J7040; Q9967

== ENCOUNTER 2018-12-20 10:51 | Outpatient (CLI) | payer OTHER | END 2018-12-20 10:52 | disposition home or self-care (01) | LOC: C.RADIC 10:51 | DX: Z00.00 Encounter for general adult medical examination without abnormal findings (principal) ==